=== PATIENT | male | born 1965 | race Caucasian/White ===

== ENCOUNTER 2017-10-06 15:27 | Emergency (ER) | payer OTHER ==
[2017-10-06] MEDS ORDERED: Diphtheria,Pertussis(Acell),Tetanus Vaccine 0.5 ML Syringe IM ONE (15:41)
[2017-10-06] MEDS ORDERED: Lidocaine 1% 20 ML MDV INJECT ONE (15:41)
[2017-10-06] MEDS ORDERED: Bacitracin Oint 1 GM U/D Packet TOP ONE (15:58)
[2017-10-06] MEDS ORDERED: ceFAZolin 1 GM Vial IM ONE (16:18)
--- NOTE | 2017-10-06 16:32 | EDM.PDOC ---
ED HPI GENERAL MEDICAL PROBLEM - General Chief Complaint: Laceration Stated Complaint: L THUMB IS CUT Time Seen by Provider: 10/06/17 16:20 Source of Information: Reports: Patient History Limitations: Reports: No Limitations - History of Present Illness INITIAL COMMENTS - FREE TEXT/NARRATIVE: HISTORY AND PHYSICAL: History of present illness: Patient is a 52-year-old male who presents to the emergency room with a laceration to his left medial thumb. States he was cutting a deer when the knife slipped and cut the left lateral thumb. Patient is unable to extend the left thumb, bleeding is controlled with a dressing he had prior to arrival. Review of systems: As per history of present illness and below otherwise all systems reviewed and negative. Past medical history: As per history of present illness and as reviewed below otherwise noncontributory. Surgical history: As per history of present illness and as reviewed below otherwise noncontributory. Social history: No reported history of drug or alcohol abuse. Family history: As per history of present illness and as reviewed below otherwise noncontributory. Physical exam: General: Well developed and well nourished 52-year-old male. Alert and oriented. Appears in no acute distress. HEENT: Atraumatic, normocephalic, pupils reactive, negative for conjunctival pallor or scleral icterus, mucous membranes moist, throat clear, neck supple, nontender, trachea midline. Lungs: Clear to auscultation, breath sounds equal bilaterally, chest nontender. Heart: S1S2, regular, negative for clicks, rubs, or JVD. Abdomen: Soft, nondistended, nontender. Negative for masses or hepatosplenomegaly. Negative for costovertebral tenderness. Pelvis: Stable nontender. Genitourinary: Deferred. Rectal: Deferred. Extremities: Extensor tendon injury, flexor tendon intact. Capillary refill less than 3 seconds. Strong radial pulse. negative for cords or calf pain. Neurovascular unremarkable. Skin: 2 cm laceration to the base of the left thumb, involving the extensor tendon. Neuro: Awake, alert, oriented. Cranial nerves II through XII unremarkable. Cerebellum unremarkable. Motor and sensory unremarkable throughout. Exam nonfocal. Our hand surgeon is unavailable at our facility at this time. Shantell contact at [facility] for consult on this case. He recommended irrigation, antibiotic, and pain management. will see the patient in same day surgery for surgical repaired on Monday10/10/2017. Requested for the patient to be there at 11:30 AM for surgery around 2 PM. Patient needs to be nothing by mouth after midnight. Did share all this information with the patient, and family member who are at bedside. Discussed signs and symptoms of infection to watch for until evaluated by Dr. Berrios in [place]. Diagnostics: xray Therapeutics: Saline Irrigation 1% Lidocaine: 4-0, small needle, was used to close the laceration. #4 interrrupted sutures. Bacitracin bulky dressing, with aluminum splint used to keep finger in neutral position Impression: Extensor Tendon injury Laceration Plan: 1. Hand surgeon, , will see the you at [facility] for surgical repaired on Monday10/10/2017. Requested for the patient to be there at 11:30 AM for surgery around 2 PM. Patient needs to be nothing by mouth after midnight. 2. You have been placed on antibiotics. It is imperative that he continue to monitor for signs of infection as we discussed. Keep the skin clean, dry and use the splint to keep the finger in a neutral position. 3. Arrington 5/325mg one tab every 4-6 hours as needed for pain management. This is a narcotic so do not take it on needing to be driving or functioning at work. He may take ibuprofen as needed for intermittent pain. Rest, ice, elevate for pain management. 4. Return to the ED as needed and as discussed. Definitive disposition and diagnosis as appropriate pending reevaluation and review of above. Onset: Today Duration: Minutes: Location: Reports: Upper Extremity, Left - Related Data Allergies Allergy/AdvReac Type Severity Reaction Status Date / Time acetaminophen Allergy Hallucinati Verified 10/06/17 15:29 [From Darvocet-N] ons propoxyphene napsylate Allergy Hallucinati Verified 10/06/17 15:29 [From Darvocet-N] ons Home Meds: Home Meds . [No Known Home Meds] 02/27/14 [History] Past Medical History HEENT History: Reports: None Cardiovascular History: Reports: None Respiratory History: Reports: None Gastrointestinal History: Reports: None Genitourinary History: Reports: None Musculoskeletal History: Reports: None Neurological History: Reports: None Psychiatric History: Reports: None Endocrine/Metabolic History: Reports: None Hematologic History: Reports: None Immunologic History: Reports: None Oncologic (Cancer) History: Reports: None Dermatologic History: Reports: None - Infectious Disease History Infectious Disease History: Reports: Chicken Pox, Measles - Past Surgical History Head Surgeries/Procedures: Reports: None HEENT Surgical History: Reports: None Cardiovascular Surgical History: Reports: None Respiratory Surgical History: Reports: None GI Surgical History: Reports: None Male Surgical History: Reports: None Endocrine Surgical History: Reports: None Neurological Surgical History: Reports: None Musculoskeletal Surgical History: Reports: Other (See Below) Oncologic Surgical History: Reports: None Dermatological Surgical History: Reports: None Social & Family History - Family History Family Medical History: Noncontributory - Tobacco Use Smoking Status *Q: Never Smoker Years of Tobacco use: 35 - Caffeine Use Caffeine Use: Reports: None - Alcohol Use Days Per Week of Alcohol Use: 2 - Recreational Drug Use Recreational Drug Use: No Drug Use in Last 12 Months: No ED ROS GENERAL - Review of Systems Review Of Systems: ROS reveals no pertinent complaints other than HPI. ED EXAM, SKIN/RASH Exam: See Below (See dictation) ED SKIN PROCEDURES - Laceration/Wound Repair Left thumb Lac/Wound length In cm: 2 Appearance: Linear Distal NVT: Other (Extensor tendon injury: see note) Local Anesthesia - Lidocaine (Xylocaine): 1% Plain Local Anesthetic Volume: 4cc Skin Prep: Chlorhexidine (Hibiciens), Providone-Iodine (Betadine), Saline, Other (1 liter pressure irrigated) Exploration/Debridement/Repair: Wound Explored, In a Bloodless Field, No Foreign Material Found Closed with: Sutures Suture Size: 4-0 # of Sutures: 4 Suture Type: Nylon Course - Vital Signs Last Recorded V/S: Last Vital Signs Temp 95.5 F 10/06/17 15:30 Pulse 97 10/06/17 15:30 Resp 20 10/06/17 15:30 BP 184/88 H 10/06/17 15:30 Pulse Ox 99 10/06/17 15:30 - Orders/Labs/Meds Orders: Active Orders 24 hr Category Date Time Status Communication Order [RC] STAT Care 10/06/17 16:18 Ordered Vaccines to be Administered [RC] PER UNIT ROUTINE Care 10/06/17 15:41 Active Meds: Medications Discontinued Medications Generic Name Dose Route Start Last Admin Trade Name Anshul PRN Reason Stop Dose Admin Bacitracin 1 dose 10/06/17 15:58 Bacitracin Oint 1 Gm TOP 10/06/17 15:59 ONETIME ONE Cefazolin Sodium 1 gm 10/06/17 16:18 Ancef IM 10/06/17 16:19 ONETIME ONE Diphtheria/Tetanus/Acell Pertussis 0.5 ml 10/06/17 15:41 10/06/17 16:02 Adacel IM 10/06/17 15:42 0.5 ml .ONCE ONE Administration Lidocaine HCl 20 ml 10/06/17 15:41 10/06/17 15:59 Xylocaine 1% INJECT 10/06/17 15:42 10 ml ONETIME ONE Administration Sterile Water 2.5 ml 10/06/17 16:40 Sterile Water For Injection INJECT 10/06/17 16:41 NOW STA Departure - Departure Time of Disposition: 16:47 Disposition: Home, Self-Care 01 Clinical Impression: Laceration Injury of extensor tendon of left hand Qualifiers: Encounter type: initial encounter Qualified Code(s): S66.902A - Unspecified injury of unspecified muscle, fascia and tendon at wrist and hand level, left hand, initial encounter - Discharge Information Referrals: PCP,Unknown [Primary Care Provider] - Forms: ED Department Discharge Additional Instructions: My general discharge The following information is given to patients seen in the emergency department who are being discharged to home. This information is to outline your options for follow-up care. We provide all patients seen in our emergency department with a follow-up referral. The need for follow-up, as well as the timing and circumstances, are variable depending upon the specifics of your emergency department visit. If you don't have a primary care physician on staff, we will provide you with a referral. We always advise you to contact your personal physician following an emergency department visit to inform them of the circumstance of the visit and for follow-up with them and/or the need for any referrals to a consulting specialist. The emergency department will also refer you to a specialist when appropriate. This referral assures that you have the opportunity for follow-up care with a specialist. All of these measure are taken in an effort to provide you with optimal care, which includes your follow-up. Under all circumstances we always encourage you to contact your private physician who remains a resource for coordinating your care. When calling for follow-up care, please make the office aware that this follow-up is from your recent emergency room visit. If for any reason you are refused follow-up, please contact the [facility] Emergency Department at and asked to speak to the emergency department charge nurse. [facility] [address], [place] [address] [facility] Office Phone Number: [phone] Located at: [facility] [employer] [address] [place] [address] [place] [address] 1. Hand surgeon, , will see the you at [facility] for surgical repaired on Monday10/10/2017. Requested for the patient to be there at 11:30 AM for surgery around 2 PM. Patient needs to be nothing by mouth after midnight. 2. You have been placed on antibiotics. It is imperative that he continue to monitor for signs of infection as we discussed. Keep the skin clean, dry and use the splint to keep the finger in a neutral position. 3. Arrington 5/325mg one tab every 4-6 hours as needed for pain management. This is a narcotic so do not take it on needing to be driving or functioning at work. He may take ibuprofen as needed for intermittent pain. Rest, ice, elevate for pain management. 4. Return to the ED as needed and as discussed. - My Orders Last 24 Hours: My Active Orders 10/06/17 15:41 Vaccines to be Administered [RC] PER UNIT ROUTINE 10/06/17 16:18 Communication Order [RC] STAT - Assessment/Plan Last 24 Hours: My Active Orders 10/06/17 15:41 Vaccines to be Administered [RC] PER UNIT ROUTINE 10/06/17 16:18 Communication Order [RC] STAT
[2017-10-06] MEDS ORDERED: Water For Injection, Sterile 20 ML SDV INJECT STA (16:40)
[2017-10-06 17:32] VITALS: BP 159/99
--- NOTE | 2017-10-10 11:28 | CR ---
EXAM DATE: 10/06/17 PATIENT'S AGE: 52 Patient: JOCE JASMINE Facility: [place], [place] Site . Site : [id number] Study: XRay Extremity Left hand [id number] 5:11:22 PM Ordering Physician: Doctor Esparza Final Report: INDICATION: injury TECHNIQUE: Two views of the left hand COMPARISON: None FINDINGS: Bones: No fractures or bone lesions. Joint spaces: Degenerative changes. Soft tissues: Unremarkable. IMPRESSION: No acute bony abnormality or radiopaque foreign body Dictated by Hima Sharpe MD @ 10/06/2017 6:12:56 PM Dictated by: Hima Sharpe MD @ 10/06/2017 18:13:37 (Electronic Signature) Report Signed by Proxy. [facility]ITALJennie
== END 2017-10-06 17:23 | disposition home or self-care (01) ==
LOC: MW.ED 15:27
DX: S66.222A Laceration of extensor muscle, fascia and tendon of left thumb at wrist and hand level, initial encounter (principal); Z23 Encounter for immunization; Z88.6 Allergy status to analgesic agent; W26.0XXA Contact with knife, initial encounter
CPT/HCPCS: 12001; 73120; 90471; 90715; 99282; J0690; 99283

== ENCOUNTER 2019-06-27 12:03 | Day surgery (SDC) | payer OTHER ==
[~2019-06-27 12:03] MED LIST: Betamethasone Acetate/Betamethasone Sod Phosphate 30 MG/5 ML MDV EPIDUR ONE; Iopamidol 200-M 10 ML vial ITHECAL ONE; Lidocaine 2% 5 ML SDV INJECT ONE; Ropivacaine 0.5% 5 MG/ML 30 ML SDV INJECT ONE
--- NOTE | 2019-06-28 00:53 | OR ---
SURGEON: Latasha Santacruz D.O. DATE OF PROCEDURE: 06/27/2019 PRIMARY SURGEON: Latasha aSntacruz D.O. ASSISTANTS: OR staff: 1. Cody Fang RN. 2. Graciela Howell RN. 3. RT Taylor. WOUND CLASS: I. PREOPERATIVE DIAGNOSES: Thoracic degenerative disk disease, thoracic radiculopathy, thoracic T11-12, T12- L1 degenerative disk disease. POSTOPERATIVE DIAGNOSES: Thoracic degenerative disk disease, thoracic radiculopathy, thoracic T11-12, T12- L1 degenerative disk disease. PROCEDURES PERFORMED: 1. Interlaminar epidural steroid injection at T12-L1. 2. Fluoroscopic guidance for needle placement. 3. Local with oral Valium for sedation. SCREENING QUESTIONS: The patient answered "no" to all of the following questions: 1. Are you allergic to latex? 2. Do you have a bleeding disorder? 3. Do you have any current local or systemic infections? 4. Are you taking any anti-inflammatories or blood thinners? 5. Do you have any joint replacements, heart valve replacements, or a pacemaker? DESCRIPTION OF PROCEDURE: The patient had the procedure thoroughly explained including all possible risks, benefits and alternatives. Consent was signed in my clinic indicating understanding and willingness to proceed. The patient presented to [facility] and was escorted to the dressing room to disrobe and change into a hospital gown. Preoperative vital signs were taken and stable. The patient reported that Valium was taken prior to the procedure. The patient was brought back to the procedure room and placed in the prone position on the procedure room table. A pillow was placed under the hips in order to flatten the thoracic lordosis. The back was prepped with ChloraPrep and sterilely draped. All personnel in the operating room were dressed in appropriate attire including surgical scrubs, head and shoe covers. This was to ensure sterility while in the treatment room. During the time fluoroscopy was in use, all personnel in the operating room wore lead rai with thyroid collars. Sterile technique was used throughout the procedure. The patient was awake and conversant throughout the procedure. There was no evidence of infection at the site of needle insertion. Skeletal landmarks were identified under fluoroscopy for the thoracic epidural. Skin was anesthetized with 2% lidocaine with a sterile 27-gauge 1.5 inch needle. Then a 20-gauge Tuohy epidural needle was placed in the epidural space with loss of resistance technique under fluoroscopic guidance. No heme, cerebrospinal fluid, or paresthesias were noted. Isovue-200 contrast dye was injected in 0.2 cubic centimeter increments and seen to outline the epidural space in both AP and lateral views. There was no intravascular flow pattern observed under live fluoroscopy. Then 12 milligrams of Celestone was slowly injected after negative aspiration. The patient tolerated the procedure well. Vital signs were stable during and after the procedure. The staff escorted the patient to the recovery area and the patient was released in stable condition after a brief stay in the recovery room monitored by the nurse. The patient was given both oral and written discharge and follow up instructions with recommendation to follow up given for 2-3 weeks. The patient voiced understanding including understanding of those signs and symptoms that would require emergency care. The patient knows how to contact the office if there are any additional problems or questions in the meantime. PREOPERATIVE PAIN: 8/10. POSTOPERATIVE PAIN: 0/10. FOLLOWUP: In the Pain Clinic in 3 weeks. NICOLÁS / TRENT /[id number]
== END 2019-06-27 13:38 | disposition home or self-care (01) ==
LOC: MW.SDS 12:03
PROVIDERS: ATTEND Anesthesiology
DX: M51.14 Intervertebral disc disorders with radiculopathy, thoracic region (principal); M51.36 Other intervertebral disc degeneration, lumbar region
CPT/HCPCS: 62321; J0702; 62323

== ENCOUNTER 2020-10-14 08:12 | Day surgery (SDC) | payer OTHER ==
[~2020-10-14 08:12] MED LIST changes: -Betamethasone Acetate/Betamethasone Sod Phosphate 30 MG/5 ML MDV EPIDUR ONE; -Iopamidol 200-M 10 ML vial ITHECAL ONE; +Lactated Ringers 1,000 ML IV SCH; -Lidocaine 2% 5 ML SDV INJECT ONE; +Midazolam 1 MG/ML 2 ML SDV ONE; +Propofol 200 MG/20 ML SDV ONE; -Ropivacaine 0.5% 5 MG/ML 30 ML SDV INJECT ONE; +Sodium Chloride 0.9% 10 ML SDV IV PRN; +Sodium Chloride 0.9% 10 ML Syringe FLUSH PRN; +Sodium Chloride 0.9% 2.5 ML Syringe FLUSH PRN; +fentaNYL 100 MCG/2 ML SDV ONE
--- NOTE | 2020-10-14 08:42 | PCM.PREANE ---
Preanesthetic Assessment - Anesthesia/Transfusion/Family Hx Anesthesia History: Prior Anesthesia Without Reaction Other Type of Anesthesia Reaction Comment: DENIES PT HAS ANY PROBLEMS WITH ANESTHESIA Family History of Anesthesia Reaction: No Transfusion History: No Prior Transfusion(s) - Review of Systems General: No Symptoms Pulmonary: No Symptoms Cardiovascular: No Symptoms Gastrointestinal: Diarrhea Neurological: No Symptoms Other: Reports: None - Physical Assessment NPO Status Date: 10/13/20 Vital Signs: Last Vital Signs Temp 97.2 F 10/14/20 08:33 Pulse 66 10/14/20 08:33 Resp 16 10/14/20 08:33 BP 124/78 10/14/20 08:33 Pulse Ox 96 10/14/20 08:33 Height: 6 ft 1 in Weight: 108.862 kg ASA Class: 2 Mental Status: Alert & Oriented x3 Airway Class: Mallampati = 2 Dentition: Reports: Normal Dentition ROM/Head Extension: Full Lungs: Clear to Auscultation, Normal Respiratory Effort Cardiovascular: Regular Rate, Regular Rhythm - Allergies Allergies/Adverse Reactions: Allergies Allergy/AdvReac Type Severity Reaction Status Date / Time acetaminophen Allergy Hallucinati Verified 10/06/20 09:41 [From Darvocet-N] ons propoxyphene napsylate Allergy Hallucinati Verified 10/06/20 09:41 [From Darvocet-N] ons - Blood Blood Available: No - Anesthesia Plan Pre-Op Medication Ordered: None - Acknowledgements Anesthesia Type Planned: General Anesthesia (tiva) Pt an Appropriate Candidate for the Planned Anesthesia: Yes Alternatives and Risks of Anesthesia Discussed w Pt/Guardian: Yes Pt/Guardian Understands and Agrees with Anesthesia Plan: Yes PreAnesthesia Questionnaire HEENT History: Reports: Impaired Vision Other HEENT History: wears glasses Cardiovascular History: Reports: None Respiratory History: Reports: None Gastrointestinal History: Reports: Other (See Below) Other Gastrointestinal History: states has been having diarrhea and abdominal pain since having COVID in 2019 Genitourinary History: Reports: None Musculoskeletal History: Reports: Arthritis, Back Pain, Chronic, Fracture Other Musculoskeletal History: states had fractured neck Neurological History: Reports: Concussion Psychiatric History: Reports: None Endocrine/Metabolic History: Reports: Obesity/BMI 30+ Hematologic History: Reports: None Immunologic History: Reports: None Oncologic (Cancer) History: Reports: None Dermatologic History: Reports: None - Infectious Disease History Infectious Disease History: Reports: Chicken Pox Other Infectious Disease History: when a child - Past Surgical History Head Surgeries/Procedures: Reports: None HEENT Surgical History: Reports: None Cardiovascular Surgical History: Reports: None Respiratory Surgical History: Reports: None GI Surgical History: Reports: Colonoscopy, Polypectomy Female Surgical History: Male Surgical History: Reports: Vasectomy Endocrine Surgical History: Reports: None Neurological Surgical History: Reports: None Musculoskeletal Surgical History: Reports: Arthroscopic Knee, Shoulder Surgery, Other (See Below) Other Musculoskeletal Surgeries/Procedures:: states had neck surgery, right hand surgery and left thumb surgery Oncologic Surgical History: Reports: None Dermatological Surgical History: Reports: None - SUBSTANCE USE Tobacco Use Within Last Twelve Months: Snuff/Dip - HOME MEDS Home Medications: Home Meds . [No Known Home Meds] 02/27/14 [History] - CURRENT (IN HOUSE) MEDS Current Meds: Current Medications Lactated Ringer's (Ringers, Lactated) 1,000 mls @ 125 mls/hr IV ASDIRECTED XU Sodium Chloride (Saline Flush) 10 ml FLUSH ASDIRECTED PRN PRN Reason: Keep Vein Open Sodium Chloride (Saline Flush) 2.5 ml FLUSH ASDIRECTED PRN PRN Reason: Keep Vein Open Sodium Chloride (Saline Flush) 10 ml FLUSH ASDIRECTED PRN PRN Reason: Keep Vein Open Sodium Chloride (Saline Flush) 2.5 ml FLUSH ASDIRECTED PRN PRN Reason: Keep Vein Open Sodium Chloride (Normal Saline) 10 ml IV ASDIRECTED PRN PRN Reason: IV Use Discontinued Medications Fentanyl (Sublimaze) Confirm Administered Dose 100 mcg .ROUTE .STK-MED ONE Stop: 10/14/20 07:42 Lidocaine HCl (Xylocaine-Mpf 1%) Confirm Administered Dose 5 ml .ROUTE .STK-MED ONE Stop: 10/14/20 07:42 Midazolam HCl (Versed 1 Mg/Ml) Confirm Administered Dose 2 mg .ROUTE .STK-MED ONE Stop: 10/14/20 07:24 Midazolam HCl (Versed 1 Mg/Ml) Confirm Administered Dose 2 mg .ROUTE .STK-MED ONE Stop: 10/14/20 07:42 Propofol (Diprivan 20 Ml) Confirm Administered Dose 600 mg .ROUTE .STK-MED ONE Stop: 10/14/20 07:24 Propofol (Diprivan 20 Ml) Confirm Administered Dose 200 mg .ROUTE .[facility] ONE Stop: 10/14/20 07:42
[2020-10-14] MEDS ORDERED: Propofol 200 MG/20 ML SDV ONE ×2 (08:48→09:08)
--- NOTE | 2020-10-14 09:22 | PCM.OPNOTE ---
- General Post-Op/Procedure Note Date of Surgery/Procedure: 10/14/20 Operative Procedure(s): Diagnostic colonoscopy Findings: normal colonoscopy Pre Op Diagnosis: COVID diarrhea Post-Op Diagnosis: Normal colonoscopy Anesthesia Technique: MAC Primary Surgeon: Rohini Griggs Condition: Good
--- NOTE | 2020-10-14 09:49 | PCM.POSTAN ---
POST ANESTHESIA ASSESSMENT - MENTAL STATUS Mental Status: Alert, Oriented - VITAL SIGNS Vital Signs: Last Vital Signs Temp 97.2 F 10/14/20 08:33 Pulse 66 10/14/20 09:41 Resp 23 H 10/14/20 09:41 BP 103/68 10/14/20 09:41 Pulse Ox 93 L 10/14/20 09:41 - RESPIRATORY Respiratory Status: Respiratory Rate WNL, Airway Patent, O2 Saturation Stable - CARDIOVASCULAR CV Status: Pulse Rate WNL, Blood Pressure Stable - GASTROINTESTINAL GI Status: No Symptoms - POST OP HYDRATION Hydration Status: Adequate & Stable
--- NOTE | 2020-10-14 09:49 | PCM48HPAN ---
Post Anesthesia Note - EVALUATION WITHIN 48HRS OF ANESTHETIC Vital Signs in Normal Range: Yes Patient Participated in Evaluation: Yes Respiratory Function Stable: Yes Airway Patent: Yes Cardiovascular Function Stable: Yes Hydration Status Stable: Yes Pain Control Satisfactory: Yes Nausea and Vomiting Control Satisfactory: Yes Mental Status Recovered: Yes Vital Signs: Last Vital Signs Temp 97.2 F 10/14/20 08:33 Pulse 66 10/14/20 09:41 Resp 23 H 10/14/20 09:41 BP 103/68 10/14/20 09:41 Pulse Ox 93 L 10/14/20 09:41
[2020-10-14 10:12] VITALS: BP 111/74; PULSE 73
--- NOTE | 2020-10-15 14:06 | OR ---
SURGEON: ROHINI GRIGGS MD DATE OF PROCEDURE: 10/14/2020 PREOPERATIVE DIAGNOSIS: COVID, diarrhea. POSTOPERATIVE DIAGNOSIS: Normal colonoscopy. PROCEDURE PERFORMED: Diagnostic colonoscopy. PRIMARY SURGEON: Endoscopist: Dr. Rohini Griggs. ANESTHESIA: MAC. INSTRUMENT USED: Olympus colonoscope. EXTENT OF EXAM: To the cecum. PREPARATION: Good. LIMITATIONS: None. INDICATIONS FOR EXAMINATION: The patient is a 55-year-old male who was diagnosed with COVID 3 to 4 months ago. Along with COVID, he developed diarrhea. This change in his bowel habits lasted for 2 months. He has a history of colon polyps. The decision was made to proceed with diagnostic colonoscopy. The patient and I discussed the procedure, expected perioperative course, and the risks including bleeding, infection, or damage to surrounding structures including perforation. The patient verbalized understanding and wishes to proceed. PROCEDURE IN DETAIL: The patient was brought to the endoscopy suite and placed in the left lateral decubitus position. A time-out was completed verifying the patient's name, age, date of , allergies, and procedure to be performed. Monitored anesthesia care was induced and continuous oxygen was provided via nasal cannula throughout the procedure. After adequate sedation was achieved, a digital rectal exam was performed. This exam was within normal limits. A well-lubricated colonoscope was inserted in the rectum and advanced under direct visualization to the level of the cecum. The cecum was identified by both visual and anatomic landmarks. A photograph taken of the cecal cap. However, I was unable to retroflex the scope within the cecum due to looping of the scope more proximally. The scope was then straightened out and fully withdrawn while examining the color, texture, anatomy, and integrity of mucosa from the cecum to the anal canal. There was no signs of inflammation or ulceration throughout the colon. There were no polyps that were identified. I saw no evidence of diverticulosis. The scope was then brought into the rectum and retroflexed to allow visualization of the anal canal opening. This appeared normal and a photograph was taken. The scope was then straightened out and fully withdrawn. The cecum to anus time was 7 minutes. The patient tolerated the procedure well and was transferred to PACU in stable condition. ENDOSCOPIC DIAGNOSIS: COVID, diarrhea. RECOMMENDATIONS: Given the patient's history of colon polyps, he will need a repeat colonoscopy in 5 years. While visiting with the patient, his bowel habits have gone back to normal. The patient can follow up in clinic as needed. GREGOR NEWMAN /[id number]
== END 2020-10-14 10:13 | disposition home or self-care (01) ==
LOC: MW.SDS 08:12
PROVIDERS: ATTEND Surgery
DX: R19.7 Diarrhea, unspecified (principal); U07.1 COVID-19; E66.9 Obesity, unspecified; Z86.010 Personal history of colon polyps; Z88.8 Allergy status to other drugs, medicaments and biological substances; Z86.018 Personal history of other benign neoplasm; Z68.32 Body mass index [BMI] 32.0-32.9, adult; Z98.890 Other specified postprocedural states
CPT/HCPCS: 45378; J2001; J2250; J2704; J3010; J7120

== ENCOUNTER 2022-05-08 15:00 | Emergency (ER) | payer OTHER ==
[2022-05-08] MEDS ORDERED: Sodium Chloride 0.9% 1,000 ML IV ONE (15:43)
[2022-05-08 16:14] LABS: CARBON DIOXIDE,CO2 25.4 mmol/L (21.0-32.0); POTASSIUM,K 4.4 mmol/L (3.5-5.1)
[2022-05-08] MEDS ORDERED: Lactated Ringers 1,000 ML IV ONE (16:39)
[2022-05-08] MEDS ORDERED: Potassium Phosphates 3 mMole/ML 15 ML SDV IV STA (16:39)
[2022-05-08] MEDS ORDERED: Phosphorus #1 250 MG Tab PO ONE (16:59)
[2022-05-08] MEDS ORDERED: Iopamidol 755 MG/ML 500 ML Multipack Bottle IVPUSH STA (17:50)
[2022-05-08 19:31] VITALS: BP 166/96; PULSE 72
== END 2022-05-08 19:31 | disposition home or self-care (01) ==
LOC: MW.ED 15:00
DX: R61 Generalized hyperhidrosis (principal); R11.0 Nausea; I10 Essential (primary) hypertension; E66.9 Obesity, unspecified; Z68.30 Body mass index [BMI] 30.0-30.9, adult; Z88.8 Allergy status to other drugs, medicaments and biological substances; Z20.822 Contact with and (suspected) exposure to COVID-19
CPT/HCPCS: 36415; 71275; 80053; 82550; 83735; 84100; 84443; 84484; 85025; 85379; 87635; 93005; 96360; 96361; 99284; A9270; J7030; J7120; Q9967; U0002

== ENCOUNTER 2022-11-01 10:08 | Emergency (ER) | payer OTHER ==
[2022-11-01] MEDS ORDERED: fentaNYL 50 MCG/ML SDV IVPUSH ONE (11:55)
[2022-11-01] MEDS ORDERED: Ketorolac 30 MG/ML SDV IVPUSH ONE (11:55)
[2022-11-01] MEDS ORDERED: Ondansetron 4 MG/2 ML SDV IVPUSH ONE (11:55)
[2022-11-01] MEDS ORDERED: Orphenadrine 60 MG/2 ML Inj IV ONE (12:17)
[2022-11-01 15:24] VITALS: BP 140/75; PULSE 74
== END 2022-11-01 15:16 | disposition home or self-care (01) ==
LOC: MW.ED 10:08
DX: S70.02XA Contusion of left hip, initial encounter (principal); F17.210 Nicotine dependence, cigarettes, uncomplicated; E66.9 Obesity, unspecified; Z68.32 Body mass index [BMI] 32.0-32.9, adult; Z88.8 Allergy status to other drugs, medicaments and biological substances; Z79.899 Other long term (current) drug therapy; W10.8XXA Fall (on) (from) other stairs and steps, initial encounter
CPT/HCPCS: 72192; 73502; 73552; 96374; 96375; 99284; J1885; J2360

== ENCOUNTER 2025-01-02 08:43 | Day surgery (SDC) | payer OTHER ==
[~2025-01-02 08:43] MED LIST changes: -Lactated Ringers 1,000 ML IV SCH; -Midazolam 1 MG/ML 2 ML SDV ONE; -Propofol 200 MG/20 ML SDV ONE; -Sodium Chloride 0.9% 10 ML SDV IV PRN; +Sodium Chloride 0.9% 20 ML SDV IV PRN; -fentaNYL 100 MCG/2 ML SDV ONE
[2025-01-02] MEDS: Lactated Ringers 1,000 ML IV SCH (09:07)
[2025-01-02] MEDS ORDERED: Lidocaine 2% 5 ML SDV ONE (10:46)
[2025-01-02] MEDS ORDERED: propofoL 500 MG/50 ML 50 ML ONE (10:46)
[2025-01-02 12:42] VITALS: BP 129/82; PULSE 55
== END 2025-01-02 12:55 | disposition home or self-care (01) ==
LOC: MW.SDS 08:43
PROVIDERS: ATTEND Surgery
DX: Z12.11 Encounter for screening for malignant neoplasm of colon (principal); D12.3 Benign neoplasm of transverse colon; K29.50 Unspecified chronic gastritis without bleeding; K44.9 Diaphragmatic hernia without obstruction or gangrene; I10 Essential (primary) hypertension; K21.9 Gastro-esophageal reflux disease without esophagitis; E78.00 Pure hypercholesterolemia, unspecified; F17.290 Nicotine dependence, other tobacco product, uncomplicated; Z79.82 Long term (current) use of aspirin; Z79.899 Other long term (current) drug therapy; Z86.018 Personal history of other benign neoplasm; Z86.0100 Personal history of colon polyps, unspecified
CPT/HCPCS: 43239; 45380; J2003; J2704; J7120; 00813

== ENCOUNTER 2025-05-03 01:22 | Emergency (ER) | payer OTHER ==
[2025-05-03 04:13] VITALS: BP 124/73; PULSE 75
== END 2025-05-03 04:12 | disposition home or self-care (01) ==
LOC: MW.ED 01:22
DX: S80.01XA Contusion of right knee, initial encounter (principal); S70.01XA Contusion of right hip, initial encounter; I10 Essential (primary) hypertension; E78.00 Pure hypercholesterolemia, unspecified; K21.9 Gastro-esophageal reflux disease without esophagitis; E66.9 Obesity, unspecified; Z79.82 Long term (current) use of aspirin; Z68.35 Body mass index [BMI] 35.0-35.9, adult; Z79.899 Other long term (current) drug therapy; Z88.8 Allergy status to other drugs, medicaments and biological substances; W19.XXXA Unspecified fall, initial encounter
CPT/HCPCS: 73552; 73560; 96372; 99283; A9270; J1171; 99282